=== PATIENT | female | born 1980 | race Caucasian/White ===

== ENCOUNTER 2016-09-15 17:13 | Emergency (ER) | payer SELFPAY ==
[~2016-09-15] VITALS: Ht 149.9 cm; Wt 43.5 kg
[2016-09-15 17:20] VITALS: BP 132/80
[2016-09-15] MEDS ORDERED: NAPROXEN 500 MG TABLET PO STA (17:39)
[2016-09-15] MEDS ORDERED: NAPR500T8 PO (18:09)
[2016-09-15] MEDS ORDERED: DIAZ5TAB PO (18:09)
[2016-09-15] MEDS ORDERED: HYDR-971 PO (18:09)
--- NOTE | 2016-09-15 18:09 | PHYS DOC ---
Past Medical History Past Medical History: Kidney Stone Past Surgical History: Tubal ligation Additional Past Surgical Histo: RIGHT BUNION REMOVED, BIOPSY L BREAST, LITHOTRIPSY, KIDNEY STENTS Alcohol Use: Rarely Drug Use: Marijuana Adult General Chief Complaint Chief Complaint: Neck Pain HPI HPI Patient is a 35 year old female who presents with left lateral neck pain rated at 8 out of 10 worse on moving her neck to the left wet that began this morning when she woke up. Patient denies any pain radiating to the left upper extremity. Denies any chest pain or shortness of breath. Review of Systems Review of Systems Constitutional: Denies fever or chills [] Eyes: Denies change in visual acuity, redness, or eye pain [] HENT: Denies nasal congestion or sore throat [] Respiratory: Denies cough or shortness of breath [] Cardiovascular: No additional information not addressed in HPI [] GI: Denies abdominal pain, nausea, vomiting, bloody stools or diarrhea [] : Denies dysuria or hematuria [] Musculoskeletal: Left lateral neck pain Integument: Denies rash or skin lesions [] Neurologic: Denies headache, focal weakness or sensory changes [] Endocrine: Denies polyuria or polydipsia [] Current Medications Current Medications Current Medications Medications (Trade) Dose Ordered Sig/Saeed Start Time Stop Time Status Last Admin Dose Admin Acetaminophen/ Hydrocodone Bitart (Lortab 5/325) 1 tab 1X ONCE 09/15/16 18:15 09/15/16 18:16 09/15/16 18:01 1 TAB Diazepam (Valium) 5 mg 1X ONCE 09/15/16 18:15 09/15/16 18:16 09/15/16 18:01 5 MG Naproxen (Naprosyn) 500 mg 1X STAT 09/15/16 17:39 09/15/16 17:47 DC 09/15/16 18:01 500 MG Allergies Allergies Allergies Coded Allergies Type Severity Reaction Last Updated Verified No Known Drug Allergies 03/18/15 No Physical Exam Physical Exam Constitutional: Well developed, well nourished, no acute distress, non-toxic appearance. [] HENT: Normocephalic, atraumatic, bilateral external ears normal, oropharynx moist, no oral exudates, nose normal. [] Eyes: PERRLA, EOMI, conjunctiva normal, no discharge. [] Neck: No cervical spine deformity noted. Diffuse paraspinal muscle tenderness to the left lateral cervical spine, limited range of motion to the left side of the neck. Supple, no stridor. [] Cardiovascular:Heart rate regular rhythm, no murmur [] Lungs & Thorax: Bilateral breath sounds clear to auscultation [] Abdomen: Bowel sounds normal, soft, no tenderness, no masses, no pulsatile masses. [] Skin: Warm, dry, no erythema, no rash. [] Back: No tenderness, no CVA tenderness. [] Extremities: No tenderness, no cyanosis, no clubbing, ROM intact, no edema. [] Neurologic: Alert and oriented X 3, normal motor function, normal sensory function, no focal deficits noted. [] Psychologic: Affect normal, judgement normal, mood normal. [] Current Patient Data Vital Signs Vital Signs Date Time Temp Pulse Resp B/P Pulse Ox O2 Delivery O2 Flow Rate FiO2 09/15/16 18:01 18 98 Room Air 09/15/16 17:20 97.8 89 97.8 EKG EKG [] Radiology/Procedures Radiology/Procedures [] Course & Med Decision Making Course & Med Decision Making Pertinent Labs and Imaging studies reviewed. (See chart for details) Patient is in the ED with torticollis. Discharged with find him naproxen and [place]. Follow-up with PCP in 3-7 days. Heat recommended to the neck. Provided return precautions and discharged in stable condition. Dragon Disclaimer Dragon Disclaimer This electronic medical record was generated, in whole or in part, using a voice recognition dictation system. Departure Departure Impression: Primary Impression: Torticollis, acute Disposition: 01 HOME, SELF-CARE Condition: STABLE Referrals: NO PCP (PCP) Follow-up with your own doctor in one week Patient Instructions: Torticollis, Acute Additional Instructions: You were seen for acute torticollis. Apply heat to neck. Take the prescribed medicines as needed. Come back to the emergency room at any point symptoms worsen. Try and exercise the neck by moving it as tolerated. Scripts Diazepam (Valium)5 Mg Tablet5 Mg PO TID PRN PAIN #20 TAB Prov:MUTUNGA,ALLI TITLE CURATIVE SPECIALIST 09/15/16 Naproxen 500 Mg Tablet.dr1 Tab PO BID #60 TAB Ref 2 Prov:MUTUNGA,ALLI TITLE CURATIVE SPECIALIST 09/15/16 Hydrocodone/Apap 5-325 ([place] 5-325 Tablet)1 Each Tablet1-2 Tab PO Q4-6HRS #20 TAB Prov:ALLI MANZO APRN 09/15/16 ALLI MANZO APRN Sep 15, 2016 18:09
[2016-09-15] MEDS ORDERED: HYDROCODONE/APAP 5/325MG TABLET. PO ONE (18:15)
[2016-09-15] MEDS ORDERED: DIAZEPAM 5 MG TABLET PO ONE (18:15)
== END 2016-09-15 18:30 | disposition home or self-care (01) ==
LOC: ER 17:13
DX: M43.6 Torticollis (principal); F12.10 Cannabis abuse, uncomplicated; Z87.442 Personal history of urinary calculi; Z98.51 Tubal ligation status
CPT/HCPCS: 99284

== ENCOUNTER 2016-12-24 20:26 | Emergency (ER) | payer OTHER ==
[~2016-12-24] VITALS: Ht 149.9 cm; Wt 43.1 kg
[~2016-12-24 20:26] MED LIST: DIAZ5TAB PO; HYDR-971 PO; NAPR500T8 PO
[2016-12-24 20:41] VITALS: BP 128/88
[2016-12-24] MEDS ORDERED: TRAM1TAB4 PO (20:57)
[2016-12-24] MEDS ORDERED: PSEU120T9 PO (20:57)
[2016-12-24] MEDS ORDERED: BENZ100C PO (20:57)
--- NOTE | 2016-12-24 20:57 | PHYS DOC ---
Past Medical History Past Medical History: Kidney Stone Past Surgical History: Tubal ligation Additional Past Surgical Histo: RIGHT BUNION REMOVED, BIOPSY L BREAST, LITHOTRIPSY, KIDNEY STENTS Alcohol Use: Rarely Drug Use: Marijuana Adult General Chief Complaint Chief Complaint: FLU SYMPTOM HPI HPI Patient is a 36 year old female presents to the emergency department with a 2 day history of upper respiratory symptoms. She states she is using over-the- counter cough and cold medications without relief of symptoms. She has a sibling at home with the same symptoms. Review of Systems Review of Systems Constitutional: Denies fever or chills [] Eyes: Denies change in visual acuity, redness, or eye pain [] HENT: Nasal congestion sore throat Respiratory: Cough] Cardiovascular: No additional information not addressed in HPI [] GI: Denies abdominal pain, nausea, vomiting, bloody stools or diarrhea [] : Denies dysuria or hematuria [] Musculoskeletal: Myalgias] Integument: Denies rash or skin lesions [] Neurologic: Denies headache, focal weakness or sensory changes [] Endocrine: Denies polyuria or polydipsia [] Allergies Allergies Allergies Coded Allergies Type Severity Reaction Last Updated Verified No Known Drug Allergies 03/18/15 No Physical Exam Physical Exam Constitutional: Well developed, well nourished, no acute distress, non-toxic appearance. [] HENT: Normocephalic, atraumatic, bilateral external ears normal, oropharynx moist, no oral exudates, nose normal. [] Eyes: PERRLA, EOMI, conjunctiva normal, no discharge. [] Neck: Normal range of motion, no tenderness, supple, no stridor. No meningeal signs [] Cardiovascular:Heart rate regular rhythm, no murmur [] Lungs & Thorax: Bilateral breath sounds clear to auscultation [] Abdomen: Bowel sounds normal, soft, no tenderness, no masses, no pulsatile masses. [] Skin: Warm, dry, no erythema, no rash. [] Back: No tenderness, no CVA tenderness. [] Extremities: No tenderness, no cyanosis, no clubbing, ROM intact, no edema. [] Neurologic: Alert and oriented X 3, normal motor function, normal sensory function, no focal deficits noted. [] Psychologic: Affect normal, judgement normal, mood normal. [] Current Patient Data Vital Signs Vital Signs Date Time Temp Pulse Resp B/P (MAP) Pulse Ox O2 Delivery O2 Flow Rate FiO2 12/24/16 20:41 98.4 91 18 100 Room Air 98.4 EKG EKG [] Radiology/Procedures Radiology/Procedures [] Course & Med Decision Making Course & Med Decision Making Pertinent Labs and Imaging studies reviewed. (See chart for details) [] Dragon Disclaimer Dragon Disclaimer This electronic medical record was generated, in whole or in part, using a voice recognition dictation system. Departure Departure Impression: Primary Impression: URI (upper respiratory infection) Disposition: HOME, SELF-CARE Condition: STABLE Referrals: NO PCP (PCP) Patient Instructions: Upper Respiratory Infection, Adult Scripts Benzonatate (TESSALON PERLE) 100 Mg Capsule 2 CAP PO TID, #40 CAP Prov: OLEG MUNOZ APRN 12/24/16 Tramadol Hcl/Acetaminophen (TRAMADOL-ACETAMINOPHN 37.5-325) 1 Each Tablet 1 TAB PO TID Y for PAIN, #20 TAB Prov: OLEG MUNOZ APRN 12/24/16 Pseudoephedrine Hcl (SUDAFED 12-HOUR) 120 Mg Tablet.er 1 TAB PO BID, #20 TAB Prov: OLEG MUNOZ APRN 12/24/16 OLEG MUNOZ APRN December 24, 2016 20:57
[2016-12-24] MEDS ORDERED: KETOROLAC TROMETHAMINE 60 MG/2 ML INJ. IM ONE (21:00)
== END 2016-12-24 21:09 | disposition home or self-care (01) ==
LOC: ER 20:26
DX: J06.9 Acute upper respiratory infection, unspecified (principal); F12.10 Cannabis abuse, uncomplicated
CPT/HCPCS: 96372; 99283; J1885

== ENCOUNTER 2019-10-18 11:46 | Emergency (ER) | payer MEDICAID ==
[~2019-10-18] VITALS: Ht 152.4 cm; Wt 47.0 kg
[~2019-10-18 11:46] MED LIST changes: +BENZ100C PO; +HYDR-3164 PO; -HYDR-971 PO; +PSEU120T9 PO; +TRAM1TAB4 PO
[2019-10-18 12:46] LABS: BILIRUBIN,URINE NEGATIVE (NEG); CLARITY,URINE CLEAR; COLOR,URINE YELLOW; NITRITE,URINE NEGATIVE (NEG); PROTEIN,URINE NEGATIVE (NEG-TRACE); UROBILINOGEN,URINE 0.2 mg/dL (0.2 mg/dL)
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
[2019-10-18 13:00] LABS: BACTERIA,URINE 0 /HPF (0-FEW); SQUAMOUS EPITHELIAL CELL,UR MOD /LPF
[2019-10-18 13:07] LABS: BASO # 0.1 x10^3/uL (0.0-0.2); BASO % 1 % (0-3); EOS # 0.1 x10^3/uL (0.0-0.7); EOS % 1 % (0-3); HEMATOCRIT 43.9 % (36.0-47.0); HEMOGLOBIN 13.9 g/dL (12.0-15.5); LYMPH # 1.5 x10^3/uL (1.0-4.8); LYMPH % 18 % (24-48); MEAN CORPUSCULAR HEMOGLOBIN 28 pg (25-35); MEAN CORPUSCULAR HGB CONC 32 g/dL (31-37); MEAN CORPUSCULAR VOLUME 90 fL (79-100); MONO # 0.4 x10^3/uL (0.0-1.1); MONO % 5 % (0-9); NEUT # 6.2 x10^3/uL (1.8-7.7); NEUT % 76 % (31-73); PLATELET COUNT 330 x10^3/uL (140-400); RED CELL DISTRIBUTION WIDTH 16.5 % (11.5-14.5); WHITE BLOOD COUNT 8.2 x10^3/uL (4.0-11.0)
[2019-10-18 13:11] LABS: CALCIUM 9.3 mg/dL (8.5-10.1); CREATININE 0.7 mg/dL (0.6-1.0); GFR 92.7
[2019-10-18 13:14] LABS: ALBUMIN 3.9 g/dL (3.4-5.0); ALBUMIN/GLOBULIN RATIO 1.2 (1.0-1.7); TOTAL BILIRUBIN 0.3 mg/dL (0.2-1.0); TOTAL PROTEIN 7.1 g/dL (6.4-8.2)
[2019-10-18] MEDS ORDERED: LORazepam 0.5 MG TABLET PO ONE (13:15)
--- NOTE | 2019-10-18 13:20 | RAD ---
EXAM: CHEST ONE VIEW. HISTORY: Shortness of breath, chest pain. COMPARISON: None. FINDINGS: A frontal view of the chest is obtained. There are no confluent infiltrates. Bibasilar prior nodular densities are likely nipple shadows. There is no pneumothorax or pleural effusion. The heart is not enlarged. IMPRESSION: 1. No confluent infiltrates. Electronically signed by: Alessandro Angel MD (10/18/2019 1:17 PM) [id number]
--- NOTE | 2019-10-18 13:25 | EKG ---
[facility] [address] [place] [address] Test Date: 2019-10-18 Test Time: 13:07:25 Pat Name: MORE BERUMEN Department: Room: Gender: F Intensivist: : 1980 Requested By: MELISA GILMORE Order Number: [id number] Reading MD: Measurements Intervals [place] Rate: 86 P: 0 ID: [id number] QRS: 51 QRSD: 66 T: 44 QT: 340 QTc: 410 Interpretive Statements SINUS RHYTHM OTHERWISE NORMAL ECG RI6.01 No previous ECG available for comparison
[2019-10-18] MEDS ORDERED: ALPR0.25 PO (14:29)
[2019-10-18 14:45] VITALS: BP 135/73
== END 2019-10-18 15:02 | disposition home or self-care (01) ==
LOC: ER 11:46
DX: F41.1 Generalized anxiety disorder (principal); F43.0 Acute stress reaction; R07.89 Other chest pain; R06.02 Shortness of breath; F43.10 Post-traumatic stress disorder, unspecified; F17.200 Nicotine dependence, unspecified, uncomplicated
CPT/HCPCS: 36415; 71045; 80053; 81001; 81025; 84484; 85025; 93005; 99285-25

== ENCOUNTER 2020-12-02 20:35 | Emergency (ER) | payer MEDICAID ==
[~2020-12-02] VITALS: Ht 149.9 cm; Wt 49.5 kg
[~2020-12-02 20:35] MED LIST changes: +ALPR0.25 PO
[2020-12-02 23:28] LABS: BASO # 0.1 x10^3/uL (0.0-0.2); BASO % 1 % (0-3); EOS # 0.3 x10^3/uL (0.0-0.7); EOS % 3 % (0-3); HEMATOCRIT 40.9 % (36.0-47.0); HEMOGLOBIN 13.4 g/dL (12.0-15.5); LYMPH # 3.1 x10^3/uL (1.0-4.8); LYMPH % 34 % (24-48); MEAN CORPUSCULAR HEMOGLOBIN 29 pg (25-35); MEAN CORPUSCULAR HGB CONC 33 g/dL (31-37); MEAN CORPUSCULAR VOLUME 87 fL (79-100); MONO # 0.6 x10^3/uL (0.0-1.1); MONO % 7 % (0-9); NEUT # 5.1 x10^3/uL (1.8-7.7); NEUT % 55 % (31-73); PLATELET COUNT 341 x10^3/uL (140-400); RED BLOOD COUNT 4.71 x10^6/uL (3.50-5.40); RED CELL DISTRIBUTION WIDTH 16.2 % (11.5-14.5); WHITE BLOOD COUNT 9.2 x10^3/uL (4.0-11.0)
[2020-12-02 23:35] LABS: BILIRUBIN,URINE NEGATIVE (NEG); CLARITY,URINE CLEAR; COLOR,URINE YELLOW; NITRITE,URINE NEGATIVE (NEG); PH,URINE 6.5 (<5.0-8.0); PROTEIN,URINE NEGATIVE (NEG-TRACE); UROBILINOGEN,URINE 0.2 mg/dL (0.2 mg/dL)
[2020-12-02 23:44] LABS: CALCIUM 8.7 mg/dL (8.5-10.1); GFR 61.1; POTASSIUM 4.2 mmol/L (3.5-5.1)
[2020-12-02 23:45] LABS: BARBITURATES NEG (NEG); BENZODIAZEPINES POS (NEG); CANNABINOIDS NEG (NEG); COCAINE NEG (NEG); METHADONE NEG (NEG); OPIATES NEG (NEG); PHENCYCLIDINE NEG (NEG)
[2020-12-02 23:48] LABS: ALBUMIN 4.1 g/dL (3.4-5.0); ALBUMIN/GLOBULIN RATIO 1.1 (1.0-1.7); TOTAL BILIRUBIN 0.2 mg/dL (0.2-1.0); TOTAL PROTEIN 7.8 g/dL (6.4-8.2)
[2020-12-02 23:48] LABS: AMPHETAMINE/METHAMPHETAMINE NEG (NEG)
[2020-12-02 23:59] LABS: BACTERIA,URINE FEW /HPF (0-FEW); RBC,URINE 0 /HPF (0-2)
[2020-12-03] MEDS ORDERED: KETOROLAC 15 MG/ML VIAL. IVP ONE (01:30)
--- NOTE | 2020-12-03 01:37 | RAD ---
Renal ultrasound dated 12/03/2020. No comparison available. Clinical data indication: Flank pain. FINDINGS: Right kidney measures 9.8 cm in length. Left kidney measures 9.4 cm in length. No hydronephrosis. No apparent renal mass. There are some echogenic foci along the calyceal margins consistent with stones. Urinary bladder is nondistended. Ureteral jets are not visualized. IMPRESSION: 1. Suspected bilateral nephrolithiasis, nonobstructive. Electronically signed by: Ronny Eng MD (12/03/2020 1:35 AM) ROB
[2020-12-03] MEDS ORDERED: IV NORMAL SALINE 1000ML BAG 1,000 ML IV ONE (02:00)
[2020-12-03] MEDS ORDERED: HYDROmorphone 2 MG/ML VIAL IVP ONE (02:00)
[2020-12-03] MEDS ORDERED: ONDANSETRON PF 4 MG/2 ML VIAL. IVP ONE (02:00)
--- NOTE | 2020-12-03 02:11 | RAD ---
CT abdomen pelvis without contrast dated 12/03/2020. No comparison available. CLINICAL INDICATION: Right flank pain. TECHNIQUE: Contiguous axial imaging the M pelvis performed without the administration of IV or oral contrast. One or more of the following individualized dose reduction techniques were utilized for this examinat ion: 1. Automated exposure control 2. Adjustment of the mA and/or kV according to patient size 3. Use of iterative reconstruction technique. FINDINGS: Limited images of lung bases are clear. Heart size within normal limits. No pleural or pericardial ef fusion. Solid abdominal viscera not well evaluated in the absence of contrast material. No apparent attenuati on abnormality of the liver or spleen. Pancreas, adrenal glands and gallbladder are unremarkable. There are multiple calcific stones along the calyceal margins of the right kidney. There are also a c ouple of punctate calcifications on the left. There are couple of small stones within the right renal pelvis measuring 2 to 3 mm in size each. No distal ureteral stone. No significant hydronephrosis. Partially opacified GI tract normal in caliber and contour. No focal bowel wall thickening. No inflam matory stranding in the mesentery. No ascites or lymphadenopathy. Appendix normal in caliber. Abdomin al aorta normal in caliber. Images of pelvis show nondistended urinary bladder. Uterus and adnexa are unremarkable. No free fluid or pelvic lymphadenopathy. Bone windows show no acute findings. IMPRESSION: 1. Bilateral nephrolithiasis, nonobstructive. 2. There are couple of small stones within the right renal pelvis. 3. Normal appendix. Electronically signed by: Ronny Eng MD (12/03/2020 2:09 AM) [facility]
[2020-12-03 04:03] VITALS: BP 94/63
--- NOTE | 2020-12-03 04:04 | PHYS DOC ---
Past Medical History Past Medical History: Anxiety, Depression, Kidney Stone Additional Past Medical Histor: PTSD, Past Surgical History: Tubal ligation Additional Past Surgical Histo: RIGHT BUNION REMOVED, BIOPSY L BREAST, LITHOTRIPSY, KIDNEY STENTS Smoking Status: Current Every Day Smoker Alcohol Use: None Drug Use: Marijuana General Adult EDM: Chief Complaint: FLANK PAIN HPI: HPI: 40-year-old female past medical history significant for right flank pain that radiates around to her right abdomen, that started 2 days ago, now with nausea, nonbloody nonbilious vomiting and loose watery diarrhea " I am peeing out of my butt," 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 Reports history of recurrent bilateral nephrolithiasis with urology at involved in 2010 & 2012 where stones were removed and she had of right nephrostomy stent placed, h/o " lithotripsy several times, it never works." Review of Systems: Review of Systems: Constitutional: Denies fever or chills. [] Eyes: Denies change in visual acuity. [] HENT: Denies nasal congestion or sore throat. [] Respiratory: Denies cough or shortness of breath. [] Cardiovascular: Denies chest pain or edema. [] GI: Denies abdominal pain, bloody stools or diarrhea. [] : Denies dysuria, hematuria or vaginal bleeding Musculoskeletal: Denies midline back pain or joint pain Integument: Denies rash or diaphoresis Neurologic: Denies headache, neck pain, focal weakness or sensory changes. [] Endocrine: Denies polyuria or polydipsia. [] Lymphatic: Denies swollen glands. [] Psychiatric: Denies depression or anxiety. [] Heart Score: C/O Chest Pain: No Risk Factors: Risk Factors: DM, Current or recent (<one month) smoker, HTN, HLP, family history of CAD, obesity. Risk Scores: Score 0 - 3: 2.5% MACE over next 6 weeks - Discharge Home Score 4 - 6: 20.3% MACE over next 6 weeks - Admit for Clinical Observation Score 7 - 10: 72.7% MACE over next 6 weeks - Early Invasive Strategies Current Medications: Current Medications Medications (Trade) Dose Ordered Sig/Saeed Start Time Stop Time Status Last Admin Dose Admin Hydromorphone HCl (Dilaudid) 0.5 mg 1X ONCE 12/03/20 02:00 12/03/20 02:01 DC 12/03/20 01:57 0.5 MG Ketorolac Tromethamine (Toradol 15mg Vial) 15 mg 1X ONCE 12/03/20 01:30 12/03/20 01:31 DC 12/03/20 01:56 15 MG Ondansetron HCl (Zofran) 4 mg 1X ONCE 12/03/20 02:00 12/03/20 02:01 DC 12/03/20 01:52 4 MG Sodium Chloride 1,000 ml @ 1,000 mls/hr 1X ONCE 12/03/20 02:00 12/03/20 02:59 DC 12/03/20 01:52 1,000 MLS/HR Allergies: Allergies: Allergies Coded Allergies Type Severity Reaction Last Updated Verified No Known Drug Allergies 03/18/15 No Physical Exam: PE: Constitutional: Well developed, well nourished, no acute distress-not writhing, lying comfortably, non-toxic appearance. HENT: Normocephalic, atraumatic, Eyes: EOMI, conjunctiva normal, no discharge. Neck: Normal range of motion, supple, Cardiovascular: S1/2 present, regular rhythm Lungs & Thorax: Speaking in full sentences, bilateral equal chest rise, no tachypnea or increased work of breathing Abdomen: soft, no tenderness, no active nausea or emesis in ED, no right upper quadrant tenderness, no Valencia sign, no McBurney sign, no peritonitis or rigidity Skin: Warm, dry, no erythema, no rash. [] Back: No tenderness, right CVA tenderness, scar over right flank Extremities: No tenderness, no cyanosis, no lower extremity edema Neurologic: Alert and oriented X 3, normal motor function, normal sensory functi on, no focal deficits noted. [] Psychologic: Affect normal, judgement normal, mood normal. [] Current Patient Data: Labs: Laboratory Tests Test 12/02/20 21:18 12/02/20 22:41 12/02/20 23:15 POC Urine HCG, Qualitative Hcg negative (Negative) Urine Collection Type Unknown Urine Color Yellow Urine Clarity Clear Urine pH 6.5 (<5.0-8.0) Urine Specific [place] 1.020 (1.000-1.030) Urine Protein Negative mg/dL (NEG-TRACE) Urine Glucose (UA) Negative mg/dL (NEG) Urine Ketones (Stick) Negative mg/dL (NEG) Urine Blood Negative (NEG) Urine Nitrite Negative (NEG) Urine Bilirubin Negative (NEG) Urine Urobilinogen Dipstick 0.2 mg/dL (0.2 mg/dL) Urine Leukocyte Esterase Negative (NEG) Urine RBC 0 /HPF (0-2) Urine WBC 1-4 /HPF (0-4) Urine Squamous Epithelial Cells Mod /LPF Urine Bacteria Few /HPF (0-FEW) Urine Mucus Mod /LPF Urine Opiates Screen Neg (NEG) Urine Methadone Screen Neg (NEG) Urine Barbiturates Neg (NEG) Urine Phencyclidine Screen Neg (NEG) Urine Amphetamine/Methamphetamine Neg (NEG) Urine Benzodiazepines Screen Pos (NEG) Urine Cocaine Screen Neg (NEG) Urine Cannabinoids Screen Neg (NEG) Urine Ethyl Alcohol Neg (NEG) White Blood Count 9.2 x10^3/uL (4.0-11.0) Red Blood Count 4.71 x10^6/uL (3.50-5.40) Hemoglobin 13.4 g/dL (12.0-15.5) Hematocrit 40.9 % (36.0-47.0) Mean Corpuscular Volume 87 fL (79-100) Mean Corpuscular Hemoglobin 29 pg (25-35) Mean Corpuscular Hemoglobin Concent 33 g/dL (31-37) Red Cell Distribution Width 16.2 % (11.5-14.5) H Platelet Count 341 x10^3/uL (140-400) Neutrophils (%) (Auto) 55 % (31-73) Lymphocytes (%) (Auto) 34 % (24-48) Monocytes (%) (Auto) 7 % (0-9) Eosinophils (%) (Auto) 3 % (0-3) Basophils (%) (Auto) 1 % (0-3) Neutrophils # (Auto) 5.1 x10^3/uL (1.8-7.7) Lymphocytes # (Auto) 3.1 x10^3/uL (1.0-4.8) Monocytes # (Auto) 0.6 x10^3/uL (0.0-1.1) Eosinophils # (Auto) 0.3 x10^3/uL (0.0-0.7) Basophils # (Auto) 0.1 x10^3/uL (0.0-0.2) Sodium Level 141 mmol/L (136-145) Potassium Level 4.2 mmol/L (3.5-5.1) Chloride Level 106 mmol/L (98-107) Carbon Dioxide Level 26 mmol/L (21-32) Anion Gap 9 (6-14) Blood Urea Nitrogen 21 mg/dL (7-20) H Creatinine 1.0 mg/dL (0.6-1.0) Estimated GFR (Cockcroft-Gault) 61.1 BUN/Creatinine Ratio 21 (6-20) H Glucose Level 90 mg/dL (70-99) Calcium Level 8.7 mg/dL (8.5-10.1) Total Bilirubin 0.2 mg/dL (0.2-1.0) Aspartate Amino Transferase (AST) 17 U/L (15-37) Alanine Aminotransferase (ALT) 29 U/L (14-59) Alkaline Phosphatase 99 U/L (46-116) Total Protein 7.8 g/dL (6.4-8.2) Albumin 4.1 g/dL (3.4-5.0) Albumin/Globulin Ratio 1.1 (1.0-1.7) Laboratory Tests 12/02/20 23:15 Laboratory Tests 12/02/20 23:15 Vital Signs: Vital Signs Date Time Temp Pulse Resp B/P (MAP) Pulse Ox O2 Delivery O2 Flow Rate FiO2 12/03/20 02:25 12 96 Room Air 12/02/20 23:04 76 96/52 (67) EKG: EKG: [] Radiology/Procedures: Radiology/Procedures: IMAGING REPORT Signed PATIENT: MORE BERUMEN ACCOUNT: [id number] : 1980 LOCATION: ER AGE: 40 SEX: F EXAM STATUS: REG ER ORD. PHYSICIAN: TRINO SOTO DO REASON: ruq/right flank pain h/o kidney stones and right nephro tube PROCEDURE: CT ABDOMEN PELVIS WO CONTRAST CT abdomen pelvis without contrast dated 12/03/2020. No comparison available. CLINICAL INDICATION: Right flank pain. TECHNIQUE: Contiguous axial imaging the M pelvis performed without the administration of IV or oral contrast. One or more of the following individualized dose reduction techniques were utilized for this examination: 1. Automated exposure control 2. Adjustment of the mA and/or kV according to patient size 3. Use of iterative reconstruction technique. FINDINGS: Limited images of lung bases are clear. Heart size within normal limits. No pleural or pericardial effusion. Solid abdominal viscera not well evaluated in the absence of contrast material. No apparent attenuation abnormality of the liver or spleen. Pancreas, adrenal glands and gallbladder are unremarkable. There are multiple calcific stones along the calyceal margins of the right kidney. There are also a couple of punctate calcifications on the left. There are couple of small stones within the right renal pelvis measuring 2 to 3 mm in size each. No distal ureteral stone. No significant hydronephrosis. Partially opacified GI tract normal in caliber and contour. No focal bowel wall thickening. No inflammatory stranding in the mesentery. No ascites or lymphadenopathy. Appendix normal in caliber. Abdominal aorta normal in caliber. Images of pelvis show nondistended urinary bladder. Uterus and adnexa are unremarkable. No free fluid or pelvic lymphadenopathy. Bone windows show no acute findings. IMPRESSION: 1. Bilateral nephrolithiasis, nonobstructive. 2. There are couple of small stones within the right renal pelvis. 3. Normal appendix. Electronically signed by: Ronny Eng MD (12/03/2020 2:09 AM) [facility] [place] DICTATED and SIGNED BY: RONNY ENG MD DATE: 12/03/20 [id number] IMAGING REPORT Signed PATIENT: MORE BERUMEN ACCOUNT: [id number] : 1980 LOCATION: ER AGE: 40 SEX: F EXAM STATUS: REG ER ORD. PHYSICIAN: TRINO SOTO DO REASON: flank pain r/o stones PROCEDURE: RENAL COMPLETE BILATERAL Renal ultrasound dated 12/03/2020. No comparison available. Clinical data indication: Flank pain. FINDINGS: Right kidney measures 9.8 cm in length. Left kidney measures 9.4 cm in length. No hydronephrosis. No apparent renal mass. There are some echogenic foci along the calyceal margins consistent with stones. Urinary bladder is nondistended. Ureteral jets are not visualized. IMPRESSION: 1. Suspected bilateral nephrolithiasis, nonobstructive. Electronically signed by: Ronny Eng MD (12/03/2020 1:35 AM) [facility] DICTATED and SIGNED BY: RONNY ENG MD DATE: 12/03/20 [id number] 0 Course & Med Decision Making: Course & Med Decision Making Pertinent Labs and Imaging studies reviewed. (See chart for details) Lengthy ED stay due to high volume in ED, acuity of critical pts and ED staffing. Concern for right flank pain, right upper abdominal pain in the setting of nausea, vomiting and loose watery diarrhea. Patient hemodynamically stable with no ketonuria or signs of infection. Patient afebrile with no leukocytosis. Ultrasound and CT imaging consistent with bilateral nephrolithiasis with no hydronephrosis. Will discharge home with strict ED return precautions were given for dehydration, fever, severe pain, syncope or neurologic deficits. Encouraged urgent outpatient follow-up with PMD and urology for definitive management of nephrolithiasis. Life-threatening processes were considered but are low suspicion at this time, given history, physical exam and ED workup. Pt was educated on all prescription medications and adverse effects. All patient's questions were answered and pt was stable at time of discharge. Life/limb-threatening differential includes but is not limited to, acute coronary syndrome/myocardial infarction, Boerhaave's, DKA, gastrointestinal bleeding, intracranial hemorrhage, ischemic bowel, meningitis, sepsis, surgical abdomen (AAA), toxidrome (drug over/overdose/carbon monoxide, etc), ovarian/testicular torsion, trauma, or infection/sepsis. I spoken with the patient and her caregivers. I explained the patient's condition, diagnoses and treatment plan based on the information available to me at this time. I have answered the patient and her caregiver's questions and addressed any concerns. The patient and her caregivers have a good understan ding of patient's diagnosis, condition and treatment plan as can be expected at this point. Vital signs have been stable. Patient's condition is stable and appropriate for discharge from the emergency department. Patient will pursue further outpatient evaluation with primary care physician or other designated or consulting physician as outlined in the discharge instructions. The patient and/or caregivers are agreeable to this plan of care and follow-up instructions have been explained in detail. The patient and/or caregivers have received these instructions in written form and have expressed an understanding of the discharge instructions. The patient and/or caregivers are aware that any significant change of condition or worsening of symptoms should prompt immediate return to this or the closest emergency department or call to 911. Ebony Disclaimer: Ebony Disclaimer: This electronic medical record was generated, in whole or in part, using a voice recognition dictation system. Departure Departure Impression: Primary Impression: Flank pain Additional Impressions: Nephrolithiasis Nausea vomiting and diarrhea Disposition: 01 HOME / SELF CARE / HOMELESS Condition: STABLE Referrals: NO PCP (PCP) Follow-up with your primary care physician in the next 24 to 48 hours or FOLLOW UP WITH FAMILY MEDICINE: Family Medicine Address: [address], [address] [place] [address] Phone: ([phone] Patient Instructions: Kidney Stones, Nausea and Vomiting Additional Instructions: FOLLOW UP WITH UROLOGY: [facility], [place] [address] [place] [address] [facility] [place] [address] [place] [address] [facility], [place] [address] [place] [address] EMERGENCY DEPARTMENT GENERAL DISCHARGE INSTRUCTIONS Thank you for coming to [facility] Emergency Department (ED) today and trusting us with you care. We trust that you had a positive experience in our Emergency Department. If you wish to speak to the department management, you may call the Director at [phone]. YOUR FOLLOW UP INSTRUCTIONS ARE FOLLOWS: 1. Do you have a private Doctor? If you do not have a private doctor, please ask for a resource list of physicians or clinics that may be able to assist you with follow up care. 2. The Emergency Physicain has interpreted your x-rays. The X-Ray specialist will also review them. If there is a change in the findings, you will be notified in 48 hours when at all possible. 3. A lab test or culture has been done, your results will be reviewed and you will be notified if you need a change in treatment. ADDITIONAL INSTRUCTIONS AND INFORMATION: 1. Your care today has been supervised by a physician who is specially trained in emergency care. Many problems require more than one evaluation for a complete diagnosis and treatment. We recommend that you schedule your follow up appointment as recommended to ensure complete treatment of you illness or injury. If you are unable to obtain follow up care and continue to have a problem, or if your condition worsens, we recommend that you return to the ED. 2. We are not able to safely determine your condition over the phone nor are we able to give sound medical advice over the phone. For these safety reasons, if you call for medical advice we will ask you to come to the ED for further evaluation. 3. If you have any questions regarding these discharge instructions please call the ED at [phone]. SAFETY INFORMATION: In the interest of safety, wellness, and injury prevention; we encourage you to wear your sealbelt, if you smoke; quite smoking, and we encourage family to use a protective helmet for bicycling and other sporting events that present an increased risk for head injury. IF YOUR SYMPTOMS WORSEN OR NEW SYMPTOMS DEVELOP, OR YOU HAVE CONCERNS ABOUT YOUR CONDITION; OR IF YOUR CONDITION WORSENS WHILE YOU ARE WAITING FOR YOUR FOLLOW UP APPOINTMENT; EITHER CONTACT YOUR PRIMARY CARE DOCTOR, THE PHYSICIAN WHOSE NAME AND NUMBER YOU WERE GIVEN, OR RETURN TO THE ED IMMEDIATELY. Scripts Ondansetron (ONDANSETRON ODT) 4 Mg Tab.rapdis 1 TAB PO PRN Q6-8HRS, #20 TAB Prov: TRINO SOTO DO 12/03/20 TRINO SOTO DO Dec 03, 2020 04:04
[2020-12-03] MEDS ORDERED: ONDA4TAB12 PO (04:09)
== END 2020-12-03 04:16 | disposition home or self-care (01) ==
LOC: ER 20:35
DX: N20.0 Calculus of kidney (principal); R11.2 Nausea with vomiting, unspecified; R10.9 Unspecified abdominal pain; R19.7 Diarrhea, unspecified; F41.9 Anxiety disorder, unspecified; F32.9 Major depressive disorder, single episode, unspecified; F17.200 Nicotine dependence, unspecified, uncomplicated; F12.90 Cannabis use, unspecified, uncomplicated; Z87.442 Personal history of urinary calculi; Z98.51 Tubal ligation status; Z98.890 Other specified postprocedural states
CPT/HCPCS: 36415; 74176; 76770; 80053; 80307; 81001; 81025; 85025; 96361; 96374; 96375; 99285; J1170; J1885; J2405; J7030

== ENCOUNTER 2021-10-03 18:35 | Emergency (ER) | payer MEDICAID ==
[~2021-10-03] VITALS: Ht 149.9 cm; Wt 52.0 kg
[~2021-10-03 18:35] MED LIST changes: +ONDA4TAB12 PO
[2021-10-03] MEDS ORDERED: IV NORMAL SALINE 1000ML BAG 1,000 ML IV SCH (19:15)
--- NOTE | 2021-10-03 19:20 | PHYS DOC ---
Past Medical History Past Medical History: Anxiety, Depression, Kidney Stone Additional Past Medical Histor: PTSD, Past Surgical History: Tubal ligation Additional Past Surgical Histo: RIGHT BUNION REMOVED, BIOPSY L BREAST, LITHOTRIPSY, KIDNEY STENTS Smoking Status: Current Every Day Smoker Alcohol Use: None Drug Use: Marijuana General Adult EDM: Chief Complaint: ABDOMINAL PAIN HPI: HPI: Patient is a 40-year-old female who presents to the emergency department today for abdominal pain with nausea and diarrhea. Patient reports that her abdominal pain started on Thursday. She rates her pain 9 out of 10. Pain is in the right upper quadrant and epigastric region. She is also reporting bilateral flank pain worse on the right. Patient has taken Tylenol for her symptoms. Patient reports that she went to [facility] last night they did an ultrasound and saw gallbladder sludge they did give her physicians to follow-up with but she states that she cannot get into see them soon. Patient called [facility] and they told her to be reevaluated. Patient reports that she did not like the way she was treated at [facility] so she decided to come here. Patient reports that they "treated me like dog crap" and "stuck me a mill in times". Patient has a history of kidney stones and multiple surgeries for the stones. Patient denies fevers, urinary symptoms, vomiting, blood in her stools. Review of Systems: Review of Systems: Constitutional: negative unless reported in HPI Eyes: negative unless reported in HPI HENT: negative unless reported in HPI Respiratory: negative unless reported in HPI Cardiovascular: negative unless reported in HPI GI: negative unless reported in HPI : negative unless reported in HPI Musculoskeletal: negative unless reported in HPI Integument: negative unless reported in HPI Neurologic: negative unless reported in HPI Endocrine: negative unless reported in HPI Lymphatic: negative unless reported in HPI Psychiatric: negative unless reported in HPI Heart Score: C/O Chest Pain: N/A Risk Factors: Risk Factors: DM, Current or recent (<one month) smoker, HTN, HLP, family history of CAD, obesity. Risk Scores: Score 0 - 3: 2.5% MACE over next 6 weeks - Discharge Home Score 4 - 6: 20.3% MACE over next 6 weeks - Admit for Clinical Observation Score 7 - 10: 72.7% MACE over next 6 weeks - Early Invasive Strategies Allergies: Allergies: Allergies Coded Allergies Type Severity Reaction Last Updated Verified No Known Drug Allergies 03/18/15 No Physical Exam: PE: Constitutional: Well developed, well nourished, no acute distress, non-toxic appearance. [] HENT: Normocephalic, atraumatic, bilateral external ears normal, oropharynx moist, no oral exudates, nose normal. [] Eyes: PERRL, EOMI, conjunctiva normal, no discharge. [] Neck: Normal range of motion, no stridor Cardiovascular:Heart rate tachycardic rhythm, no murmur [] Lungs & Thorax: Bilateral breath sounds clear to auscultation [] Abdomen: Bowel sounds normal, soft, patient has generalized abdominal tenderness that is worse in the epigastric and right upper quadrant, no abdominal guarding or rigidity, no masses, no pulsatile masses. [] Skin: Warm, dry, no erythema, no rash. [] Back: No tenderness, right sided CVA tenderness. [] Extremities: No tenderness, no cyanosis, no clubbing, ROM intact, no edema. [] Neurologic: Alert and oriented X 3, normal motor function, normal sensory function, no focal deficits noted. [] Psychologic: Affect normal, judgement normal, mood normal. [] Current Patient Data: Labs: Laboratory Tests Test 10/03/21 18:55 10/03/21 19:34 Urine Collection Type Unknown Urine Color Yellow Urine Clarity Clear Urine pH 5.5 Urine Specific [place] >=1.030 Urine Protein Negative mg/dL Urine Glucose (UA) Negative mg/dL Urine Ketones (Stick) Negative mg/dL Urine Blood Negative Urine Nitrite Negative Urine Bilirubin Small Urine Urobilinogen Dipstick 0.2 mg/dL Urine Leukocyte Esterase Negative Urine RBC 0 /HPF Urine WBC Occ /HPF Urine Squamous Epithelial Cells Mod /LPF Urine Bacteria Few /HPF Urine Mucus Slight /LPF Urine Opiates Screen Pos Urine Methadone Screen Neg Urine Barbiturates Neg Urine Phencyclidine Screen Neg Urine Amphetamine/Methamphetamine Neg Urine Benzodiazepines Screen Pos Urine Cocaine Screen Neg Urine Cannabinoids Screen Neg Urine Ethyl Alcohol Neg White Blood Count 5.7 x10^3/uL Red Blood Count 4.14 x10^6/uL Hemoglobin 12.0 g/dL Hematocrit 36.5 % Mean Corpuscular Volume 88 fL Mean Corpuscular Hemoglobin 29 pg Mean Corpuscular Hemoglobin Concent 33 g/dL Red Cell Distribution Width 16.5 % Platelet Count 323 x10^3/uL Neutrophils (%) (Auto) 51 % Lymphocytes (%) (Auto) 36 % Monocytes (%) (Auto) 10 % Eosinophils (%) (Auto) 4 % Basophils (%) (Auto) 0 % Neutrophils # (Auto) 2.9 x10^3/uL Lymphocytes # (Auto) 2.0 x10^3/uL Monocytes # (Auto) 0.6 x10^3/uL Eosinophils # (Auto) 0.2 x10^3/uL Basophils # (Auto) 0.0 x10^3/uL Sodium Level 142 mmol/L Potassium Level 3.9 mmol/L Chloride Level 110 mmol/L Carbon Dioxide Level 22 mmol/L Anion Gap 10 Blood Urea Nitrogen 24 mg/dL Creatinine 0.8 mg/dL Estimated GFR (Cockcroft-Gault) 79.0 BUN/Creatinine Ratio 30 Glucose Level 110 mg/dL Calcium Level 7.8 mg/dL Total Bilirubin 0.2 mg/dL Aspartate Amino Transf (AST/SGOT) 23 U/L Alanine Aminotransferase (ALT/SGPT) 29 U/L Alkaline Phosphatase 93 U/L Total Protein 6.8 g/dL Albumin 3.4 g/dL Albumin/Globulin Ratio 1.0 Lipase 54 U/L Current Medications Medications (Trade) Dose Ordered Sig/Saeed Route PRN Reason Start Time Stop Time Status Last Admin Dose Admin Sodium Chloride 1,000 ml @ 1,000 mls/hr Q1H IV 10/03/21 19:15 10/03/21 20:14 DC 10/03/21 19:41 Fentanyl Citrate (Fentanyl 2ml Vial) 50 mcg 1X ONCE IVP 10/03/21 19:45 10/03/21 19:36 DC Ondansetron HCl (Zofran) 4 mg 1X ONCE IVP 10/03/21 19:45 10/03/21 19:46 DC 10/03/21 19:41 Ketorolac Tromethamine (Toradol 15mg Vial) 15 mg 1X ONCE IVP 10/03/21 20:00 10/03/21 20:01 DC 10/03/21 19:49 Fentanyl Citrate (Fentanyl 2ml Vial) 50 mcg 1X ONCE IVP 10/03/21 21:00 10/03/21 21:01 DC 10/03/21 20:31 Vital Signs: Vital Signs Date Time Temp Pulse Resp B/P (MAP) Pulse Ox O2 Delivery O2 Flow Rate FiO2 10/03/21 18:36 98.3 117 22 145/69 (94) 98 Room Air 98.3 EKG: EKG: [] Radiology/Procedures: Radiology/Procedures: []PROCEDURE: ABDOMEN LTD EXAM: RIGHT UPPER QUADRANT ULTRASOUND. HISTORY: Right upper quadrant pain. COMPARISON: 12/03/2020. FINDINGS: Sonographic evaluation of the right upper quadrant was performed. The liver appears normal in parenchymal echotexture. There are no focal lesions. The gallbladder is unremarkable without evidence of stones, wall thickening or pericholecystic fluid. There is no sonographic Valencia sign. The common duct measures 4 mm. The visualized portions of the head of the pancreas reveal no abnormality. The right kidney measures 10.1 cm. Cortical thickness and echogenicity are preserved. There is no hydronephrosis. Small echogenic foci correspond with c alculi on prior CT. The visualized portions of the abdominal aorta and inferior vena cava are grossly patent and normal in caliber. IMPRESSION: 1. Small right renal calculi are better appreciated on prior CT. No acute process is identified. Electronically signed by: Alessandro Angel MD (10/03/2021 10:34 PM) [id number] DICTATED and SIGNED BY: LOYDA ANGEL MD DATE: 10/03/21 [id number] 0 Course & Med Decision Making: Course & Med Decision Making Pertinent Labs and Imaging studies reviewed. (See chart for details) [] Patient presents to the emergency department for abdominal pain with nausea, diarrhea that started on Thursday. Patient reports that she was seen at [facility] and they told her that she had an enlarged gallbladder and gallbladder sludge and they referred her outpatient, patient reports that she cannot get into see any of these physicians in a timely manner. Patient did not like the way she was treated over [facility] so she decided to be reevaluated here. Patient has generalized abdominal tenderness that is worse in her epigastric and right upper quadrant. She is also having right-sided CVA tenderness. Patient has a history of kidney stones with multiple kidney stents and lithotripsies. Work-up in the ER consisted of blood work, urinalysis and CT imaging of abdomen and pelvis. Patient treated with IV fluids and pain medication. Patient reports that she had a CT scan performed at [facility], I am attem pting to obtain records from [facility] to avoid repeat radiation for CT of abdomen/pelvis. 2141: currently still waiting for records from [facility]. US of ruq ordered. Ultrasound did not show any gallbladder sludge, stones or wall thickening. There was a right renal stone noted without any hydronephrosis that was similar to previous exam. Reviewed patient's records it appears that she did have a CT scan of her abdomen and pelvis and November of last year and at that time the stones in her right kidney were 2 to 3 mm. I reviewed patient's K tracks and it appears that she obtained monthly narcotic prescriptions from various prescribers. Patient was seen and evaluated in the ER within the last 24 hours and had an appropriate work-up. Her physical exam was reassuring. Her blood work was unremarkable. Patient will be discharged home with nausea medication and advised to follow-up with her primary care provider if she requires any additional pain management. I discussed with patient all findings and diagnostic testing as well as the need to follow-up with PCP for further evaluation and treatment or return to the ER if any new or worsening symptoms. Strict return precautions were also discussed at length. Patient voiced understanding and agreement with the plan. Patient is hemodynamically stable at the time of disposition. Dragon Disclaimer: DataXu Disclaimer: This electronic medical record was generated, in whole or in part, using a voice recognition dictation system. Departure Departure Impression: Primary Impression: Abdominal pain Qualified Codes: R10.11 - Right upper quadrant pain Disposition: HOME / SELF CARE / HOMELESS Condition: GOOD Referrals: YARIEL ALATORRE MD (PCP) Patient Instructions: Abdominal Pain (Nonspecific), Nausea, Adult Additional Instructions: You were seen in the emergency department today for abdominal pain with nausea. Your blood work was unremarkable. The ultrasound did not show any gallstones, gallbladder sludge or gallbladder wall thickening. You do have a kidney stone on the right side but it is unchanged from your previous CT scan last year and there is no obstruction. You are being discharged home with nausea medication that you can take as needed. Take Tylenol and ibuprofen for pain at home. If you require any pain management, you will need to follow-up with your primary care provider. Please contact your primary care provider tomorrow regarding your ER visit. Return to the emergency department if you develop worsening of your abdominal pain, intractable nausea or vomiting, high fevers refractory to treatment, blood in your stools or vomit, blood in your urine, severe back pain. Scripts Ondansetron (ONDANSETRON ODT) 4 Mg Tab.rapdis 1 TAB PO PRN Q6-8HRS for 7 Days, #28 TAB 0 Refills Prov: DARRON MARTIN APRN 10/03/21 DARRON MARTIN APRN Oct 03, 2021 19:20
[2021-10-03 19:27] LABS: BILIRUBIN,URINE SMALL (NEG); CLARITY,URINE CLEAR; COLOR,URINE YELLOW; NITRITE,URINE NEGATIVE (NEG); PH,URINE 5.5 (<5.0-8.0); PROTEIN,URINE NEGATIVE (NEG-TRACE); UROBILINOGEN,URINE 0.2 mg/dL (0.2 mg/dL)
[2021-10-03 19:33] LABS: BACTERIA,URINE FEW /HPF (0-FEW); RBC,URINE 0 /HPF (0-2); WBC,URINE OCC /HPF (0-4)
[2021-10-03 19:34] LABS: BARBITURATES NEG (NEG); BENZODIAZEPINES POS (NEG); CANNABINOIDS NEG (NEG); COCAINE NEG (NEG); METHADONE NEG (NEG); OPIATES POS (NEG); PHENCYCLIDINE NEG (NEG)
[2021-10-03 19:36] LABS: AMPHETAMINE/METHAMPHETAMINE NEG (NEG)
[2021-10-03 19:42] LABS: BASO % 0 % (0-3); EOS # 0.2 x10^3/uL (0.0-0.7); EOS % 4 % (0-3); HEMATOCRIT 36.5 % (36.0-47.0); LYMPH % 36 % (24-48); MEAN CORPUSCULAR HEMOGLOBIN 29 pg (25-35); MEAN CORPUSCULAR HGB CONC 33 g/dL (31-37); MEAN CORPUSCULAR VOLUME 88 fL (79-100); MONO # 0.6 x10^3/uL (0.0-1.1); MONO % 10 % (0-9); NEUT # 2.9 x10^3/uL (1.8-7.7); NEUT % 51 % (31-73); PLATELET COUNT 323 x10^3/uL (140-400); RED BLOOD COUNT 4.14 x10^6/uL (3.50-5.40); RED CELL DISTRIBUTION WIDTH 16.5 % (11.5-14.5); WHITE BLOOD COUNT 5.7 x10^3/uL (4.0-11.0)
[2021-10-03] MEDS ORDERED: fentaNYL PF VIAL 100 MCG/2 ML VIAL IVP ONE ×2 (19:45→21:00)
[2021-10-03] MEDS ORDERED: ONDANSETRON PF 4 MG/2 ML VIAL. IVP ONE (19:45)
[2021-10-03 19:49] LABS: CALCIUM 7.8 mg/dL (8.5-10.1); CREATININE 0.8 mg/dL (0.6-1.0); POTASSIUM 3.9 mmol/L (3.5-5.1)
[2021-10-03 19:55] LABS: ALBUMIN 3.4 g/dL (3.4-5.0); TOTAL BILIRUBIN 0.2 mg/dL (0.2-1.0); TOTAL PROTEIN 6.8 g/dL (6.4-8.2)
[2021-10-03] MEDS ORDERED: KETOROLAC 15 MG/ML VIAL. IVP ONE (20:00)
--- NOTE | 2021-10-03 22:36 | RAD ---
EXAM: RIGHT UPPER QUADRANT ULTRASOUND. HISTORY: Right upper quadrant pain. COMPARISON: 12/03/2020. FINDINGS: Sonographic evaluation of the right upper quadrant was performed. The liver appears normal in parenchymal echotexture. There are no focal lesions. The gallbladder is unremarkable without evidence of stones, wall thickening or pericholecystic fluid. There is no sonographic Valencia sign. The common duct measures 4 mm. The visualized portions of the head of the pancreas reveal no abnormality. The right kidney measures 10.1 cm. Cortical thickness and echogenicity are preserved. There is no hyd ronephrosis. Small echogenic foci correspond with calculi on prior CT. The visualized portions of the abdominal aorta and inferior vena cava are grossly patent and normal i n caliber. IMPRESSION: 1. Small right renal calculi are better appreciated on prior CT. No acute process is identified. Electronically signed by: Alessandro Angel MD (10/03/2021 10:34 PM) [id number]
[2021-10-03 23:00] VITALS: BP 109/72
[2021-10-03] MEDS ORDERED: ONDA4TAB12 PO (23:21)
[2021-10-05] MEDS ORDERED: ONDA4TAB12 PO (20:56)
[2021-10-05] MEDS ORDERED: MIRT45TA58 PO (20:58)
[2021-10-05] MEDS ORDERED: TRAZ-118 PO (21:03)
[2021-10-05] MEDS ORDERED: SERT100T PO (21:04)
== END 2021-10-03 23:36 | disposition home or self-care (01) ==
LOC: ER 18:35
DX: R10.11 Right upper quadrant pain (principal); R11.0 Nausea; R19.7 Diarrhea, unspecified; R10.13 Epigastric pain; R10.84 Generalized abdominal pain; F17.200 Nicotine dependence, unspecified, uncomplicated; Z98.51 Tubal ligation status; Z87.442 Personal history of urinary calculi; Z96.0 Presence of urogenital implants
CPT/HCPCS: 36415; 76705; 80053; 80307; 81001; 83690; 85025; 96361; 96374; 96375; 99285; J1885; J2405; J3010; J7030